=== PATIENT | female | born 1985 | race Caucasian/White ===

== ENCOUNTER 2018-08-18 15:09 | Inpatient (IN) | payer OTHER ==
[2018-08-15 08:59] VITALS: BMI 30.2
[2018-08-18] MEDS ORDERED: Nalbuphine HCL 10 mg/ml Ampule IVP ONE (18:43)
[2018-08-18] MEDS ORDERED: Lactated Ringer's 1,000 ML IV SCH (18:45)
[2018-08-18] MEDS ORDERED: Nalbuphine 20 mg/ml Inj (1 ml) ONE (18:57)
--- NOTE | 2018-08-18 22:29 | OBADHP ---
Datetime: 08/18/2018 22:25 Extremities - PN: Normal Abdomen - PN: Normal Back - PN: Normal Lungs - PN: Normal Heart - PN: Normal Neurologic - PN: Normal General - PN: Normal FHR - Baseline A Provider: 120's Membranes, Provider: Intact Contraction Comments Provider: Q5 Vital Signs Provider: Reviewed NICHD Variability Prov Fetus A: Moderate 6-25bpm NICHD Accel Fetus A IP Provider: 15X15 FHR Category Provider Fetus A: Category I NICHD Decel Fetus A IP Provider: None Dilatation, Provider: 2 Effacement, Provider: 100 Station, Provider: -1 Genitourinary Exam: Normal Datetime: 08/18/2018 15:37 Admit Comment, IP Provider: 32 yo G1 at 38 wks w/ EDC 09/01/2018 by LMP c/o ctxns last night that [place] ve become stronger and regular today, passed mucus plug at 1pm. Pt denies LOF, VB and reports FM. PMH: Crohn's Meds: PNVs All: remicade- anaphylaxis Fam hx: sister- DM PSH: Appendectomy 01/2004 Bowel resection 05/2004 [place] [facility] hx: menarche 13, reg periods Pt denies STDs, abn paps Soc hx: Pt denies tobacco, alcohol, and illicit drug use PE: AFVSS Gen'l: Pt appears slightly uncomfortable in stretcher Heart: RRR Chest: lungs CTA b/l Abd: soft, NT, gravid Ext: no edema, NT VE: 1-/ -1 at 1535 EFM: as above [place]: as above A/P: 32 yo G1 at 38 wks w/ ctxns VE at 6 pm- unchanged Pt received nubaine VE at 10:06 pm 100/-1 Pt admitted in to L_D. GBS negative. FHT reactive. IP Chief Complaint: Uterine contractions EGA AdmitDate IP: 38.0 IP Adm Impression: Term, intrauterine IP Admit Plan: Admit to unit; Initiate labor protocol; Observation/Evaluation Datetime: 08/15/2018 09:56 Pelvic Type - PN: Adequate Breast - PN: Not Done Thyroid - PN: Not Done HEENT - PN: Normal Comments, ACOG Physical Exam: Sterile speculum exam: No fluid, no discharge, no bleeding, no fluid with Valsalva. Pool Provider: Negative DTRs - PN: Not Done
[2018-08-18 23:06] LABS: BASO % 0.4 % (0.0-2.0); EOS # 0.1 K/uL (0.0-0.7); EOS % 0.6 % (0.0-4.0); HEMOGLOBIN 11.6 g/dL (12.0-16.0); LYMPH # 1.9 K/uL (1.0-4.3); LYMPH % 16.1 % (20.0-40.0); MEAN CELL VOLUME 82.8 fl (81.0-99.0); MEAN CORPUSCULAR HEMOGLOBIN 26.6 pg (27.0-31.0); MEAN CORPUSCULAR HGB CONC 32.2 g/dL (33.0-37.0); MEAN PLATELET VOLUME 12.9 fl (7.2-11.7); MONO # 0.8 K/uL (0.0-0.8); NEUT # 8.8 K/uL (1.8-7.0); NEUT % 75.9 % (50.0-75.0); NRBC % 0.1 % (0.0-0.0); RBC 4.35 Mil/uL (3.80-5.20); RED CELL DISTRIBUTION WIDTH 14.9 % (11.5-14.5); WHITE BLOOD COUNT 11.6 K/uL (4.8-10.8)
[2018-08-18] MEDS ORDERED: Promethazine 25 MG in Sodium Chloride 0.9% 50 ML IVPB ONE (23:53)
[2018-08-18] MEDS ORDERED: Nalbuphine HCL 10 mg/ml Ampule IVP PRN (23:53)
[2018-08-19] MEDS: Nalbuphine 20 mg/ml Inj (1 ml) IVP PRN ×2 (00:29→04:34)
[2018-08-19] MEDS ORDERED: Promethazine 25 MG in Sodium Chloride 0.9% 50 ML IVPB ONE (04:18)
[2018-08-19] MEDS: Lactated Ringer's 1,000 ML IV SCH ×4 (04:38→11:15)
--- NOTE | 2018-08-19 07:34 | HP ---
HISTORY OF PRESENT ILLNESS: This is a 32-year-old G1 at 38 weeks with an EDC of 09/01/2018 by LMP, complaining of contractions last night that had become stronger and regular today. The patient reports that she passed her mucus plug at 1 p.m. She denies leaking of fluids, vaginal bleeding, reports positive movement. Of note, the patient received her care with Dr. Dara Knutson. The patient has a history of Crohn's disease, status post bowel resection in 2003, GBS was negative and that was done on 08/06/2018. The patient received her Tdap on 06/19/2018, and she received her flu vaccine on 08/13/2018. PAST MEDICAL HISTORY: Crohn's. MEDICATIONS: vitamins. ALLERGIES: REMICADE CAUSED ANAPHYLAXIS. FAMILY HISTORY: Sister with diabetes. PAST SURGICAL HISTORY: Appendectomy in 01/2004 and bowel resection in 05/2004. [employer] HISTORY: Menarche at 13, regular periods. The patient denies any history of any STDs or any abnormal Pap smears. SOCIAL HISTORY: The patient denies tobacco, alcohol, or illicit drug use. LABS: On 01/22/2018, blood type is 0 negative. No antibodies detected. Hemoglobin electrophoresis is normal pattern. Urine culture with no growth. HIV was nonreactive. Varicella zoster antibody was positive. Rubella antibody was positive. RPR was nonreactive. Hepatitis B surface antigen was nonreactive. On 02/19/2018, her panorama was low risk female fetus. On 02/19/2018, Pap smear was negative. HPV was negative. Gonorrhea and chlamydia were negative. On 03/19/2018, maternal serum AFP was negative. On 06/19/2018, her HIV was nonreactive, and on 06/19/2018, her RPR was nonreactive. One-hour glucose was 103, and on 08/06/2018, her group B Strep was negative. PHYSICAL EXAMINATION: GENERAL: The patient appears uncomfortable, in the stretcher. VITAL SIGNS: Afebrile. Vital signs stable. HEART: Regular rate and rhythm. CHEST AND LUNGS: Clear to auscultation bilaterally. ABDOMEN: Soft, nontender. Gravid. EXTREMITIES: No edema. Nontender. GENITALIA: Vaginal exam at 1535 was 1 to 2 cm, 75% -1 station. External monitoring in the 120s. Moderate variability and positive accelerations. Tocodynamometer was every six minutes at 1800. Exam was unchanged with 1 to 2, 75% minus 1 station. The patient received Nubain 10 mg IV and Nubain at 7 p.m. and at 10:06 p.m. or 2206. Her exam is changed to 2 cm, 100% effaced at -1 station. ASSESSMENT AND PLAN: This is a 32-year-old G1 at 38 weeks with contractions and early labor. The patient was admitted to labor and delivery. GBS is negative. heart tracing reactive. Maame Hutchison MD
[2018-08-19] MEDS ORDERED: Oxytocin 30 UNIT 30 UNITS/500 ML BAG IV ONE ×2 (09:41→17:11)
[2018-08-19] MEDS ORDERED: Fentanyl/Bupivacaine HCl 250 ML EPI ONE (10:00)
[2018-08-19] MEDS ORDERED: OXYTOCIN/0.9 % NS 20 UNIT/1,000 ML BAG IV SCH (14:45)
--- NOTE | 2018-08-19 16:48 | OBPN ---
Datetime: 08/19/2018 16:41 IP Informed Consent Obtain: Vaginal Delivery IP Procedures: Intrauterine Pressure Catheter; Scalp Electrode IP Progress Plan: Continue present management Membranes, Provider: Ruptured Amniotic Fluid Color, Provider: Clear Contraction Comments Provider: q 2-3 mins FHR - Baseline A Provider: 160 IP Progress Note Comment: Patient is comfortable s/p epidural. VE=6/100/0 MPC=083 mod kassie, +accels, no decels TOCO = ctxning q 2-3 mins, Pit @ 18 A/P 1. Patient has protracted labor, IUPC placed. Patient has been 6cm for over 2 hours, will continue to augment with Pitocin above 20mu/min 2. CEFM and TOCO 3. Re-evaluate as needed or in 2 hours. If the patient is an arrest, would advise Vital Signs Provider: Reviewed; Within Normal Limits NICHD Accel Fetus A IP Provider: 15X15 NICHD Variability Prov Fetus A: Moderate 6-25bpm Dilatation, Provider: 6 Effacement, Provider: 100 Station, Provider: 0 Datetime: 08/18/2018 22:25 FHR Category Provider Fetus A: Category I NICHD Decel Fetus A IP Provider: None Datetime: 08/15/2018 09:56 Pool Provider: Negative
--- NOTE | 2018-08-19 18:58 | OBPN ---
Datetime: 08/19/2018 18:30 IP Informed Consent Obtain: Vaginal Delivery IP Procedures: Sterile Vag Exam IP Progress Plan: Continue present management Membranes, Provider: Ruptured Contraction Comments Provider: MVU = 200 FHR - Baseline A Provider: 160 IP Progress Note Comment: Patient comfortable OOD=999 mod kassie, +accels, no decels TOCO = MVU about 200 mu/min VE=7-8/100/0 A/P 1. patient making some cervical change, continue augmentation with Pitocin 2. CEFM and IUPC 3. Re-evaluate as needed Vital Signs Provider: Reviewed; Within Normal Limits NICHD Variability Prov Fetus A: Moderate 6-25bpm Dilatation, Provider: 7-8 Effacement, Provider: 100 Station, Provider: 0 NICHD Decel Fetus A IP Provider: None
[2018-08-19] MEDS: AMPICILLIN IV SCH (20:00)
[2018-08-19] MEDS: SODIUM CHLORIDE 0.9% IV SCH (20:00)
--- NOTE | 2018-08-19 21:24 | OBPN ---
Datetime: 08/19/2018 21:00 IP Informed Consent Obtain: Vaginal Delivery IP Procedures: Sterile Vag Exam IP Progress Plan: Continue present management Contraction Comments Provider: q 2-3 mins FHR - Baseline A Provider: 160 IP Progress Note Comment: Patient feeling pressure, last temp was 99.6. Tmax = 100.6. Ampicillin, Ge ntamicin and tylenol given for suspected chorio PTN=933 mod kassie, +acccels, no decels TOCO = ctxning q 2-3 mins, Pitocin @ 22mu/min VE=9/100/1 A/P 1. Patient progressingly slowly, now 9cm. 2. Patient being treated for suspected chorio. Temperature now 99.6. Patient progressing in labor, cat-1 and cat -2 tracing observed. resuscitative measures improve tracing. Will continue with labor at this time 3. Will advise if worsening maternal/ distress observed 4. CEFM and TOCO Vital Signs Provider: Reviewed; Within Normal Limits NICHD Accel Fetus A IP Provider: 15X15 NICHD Variability Prov Fetus A: Moderate 6-25bpm Dilatation, Provider: 9 Effacement, Provider: 100 Station, Provider: 1
[2018-08-20] MEDS ORDERED: Lidocaine 2% MPF (5 ml) Inj ONE (00:01)
[2018-08-20] MEDS ORDERED: Oxytocin 30 UNIT 30 UNITS/500 ML BAG IV ONE (00:01)
--- NOTE | 2018-08-20 00:29 | OBDS ---
MATERNAL INFORMATION Provider Comments: of live female over intact perineum, followed by shoulders and rest o f infant, OA presentation, mouth and nose suctioned, cord clamped and cut, placed in warmer, c ord blood obtained, placenta delivered spontaneously, fundus firm, [id number] , 2nd degree laceration repaired with 2-0 vicryl rapide LABOR SUMMARY EDC: 09/01/2018 00:00 No. Babies in Womb: 1 MEMBRANES Membranes Rupture Method: Spontaneous Rupture of Membranes: 08/19/2018 11:59 Amniotic Fluid Color: Light Meconium Amniotic Fluid Amount: Small SCORES BABY A Heart Rate 1 min: >100 bpm Resp Effort 1 min: Slow, Irregular Reflex Irritability 1 min: [place] Muscle Tone 1 min: Flaccid Color 1 min: Body [place], Extremities Blue SCORE 1 MIN: 5 IDENTIFICATION/MEDS BABY A ID Band Number: [id number]
[2018-08-20] MEDS ORDERED: Benzocaine/Menthol SPRAY TOP PRN ×2 (00:30→02:31)
[2018-08-20] MEDS ORDERED: Oxycodone/Acetaminophen 5/325 mg Tab PO PRN ×4 (00:30→02:31)
[2018-08-20] MEDS: SODIUM CHLORIDE 0.9% IV SCH (01:30)
[2018-08-20] MEDS: AMPICILLIN IV SCH (01:30)
[2018-08-20] MEDS ORDERED: AMPicillin 2 GM in Sodium Chloride 0.9% 100 ML IVPB SCH (04:00)
[2018-08-20 06:44] LABS: MEAN CELL VOLUME 82.4 fl (81.0-99.0); MEAN CORPUSCULAR HEMOGLOBIN 26.6 pg (27.0-31.0); MEAN CORPUSCULAR HGB CONC 32.3 g/dL (33.0-37.0); RBC 3.38 Mil/uL (3.80-5.20); RED CELL DISTRIBUTION WIDTH 15.1 % (11.5-14.5); WHITE BLOOD COUNT 16.7 K/uL (4.8-10.8)
[2018-08-20] MEDS: AMPicillin 2 GM in Sodium Chloride 0.9% 100 ML IVPB SCH ×3 (08:03→20:35)
[2018-08-20] MEDS: Multivitamin With Minerals Tab PO SCH (08:11)
[2018-08-20] MEDS ORDERED: SODIUM CHLORIDE 0.9% IVPB SCH (09:00)
[2018-08-20] MEDS ORDERED: Multivitamin With Minerals Tab PO SCH (09:00)
[2018-08-20] MEDS ORDERED: GENTAMICIN IVPB SCH (09:00)
[2018-08-20] MEDS ORDERED: AMPicillin 4 GM ONE (16:12)
--- NOTE | 2018-08-21 00:59 | OBPPN ---
Datetime: 08/20/2018 23:00 PP Pain Prov: Within normal limits PP Nausea Prov: Denies PP Flatus Prov: Yes PP BM Prov: Yes PP Breasts Prov: Normal PP Heart Prov: Normal PP Lungs Prov: Normal PP Abdomen/Uterus Prov: Normal PP Lochia Prov: Normal PP Vulva/Perineum Prov: Normal PP CVA Tenderness Prov: Normal PP Extremities Prov: Normal PP Impression Prov: Normal progression PP Plan Prov: Continue present management PP Progress Note Prov: H/H 07/25 Blood type O neg A: S/P day 1 Anemia : asymptomatic PLAN: anticipate discharge PPD2
[2018-08-21] MEDS: AMPicillin 2 GM in Sodium Chloride 0.9% 100 ML IVPB SCH ×2 (02:15→09:58)
[2018-08-21] MEDS: Multivitamin With Minerals Tab PO SCH (10:01)
[2018-08-22 01:24] VITALS: BP 136/83; PULSE 110; RESP 20; TEMP 98.1; O2SAT 98
== END 2018-08-21 15:00 | disposition home or self-care (01) | DRG 806 ==
LOC: H.EROB2 15:09 → MERGE 22:48 → H.L&D 22:48 → H.OB/GYN 08-20 02:15
PROVIDERS: ADMIT Obstetrics & Gynecology; ATTEND Obstetrics & Gynecology
PROC: 4A1H74Z Monitoring of Products of Conception, Cardiac Electrical Activity, Via Natural or Artificial Opening (ICD-10-PCS; 2018-08-18)
PROC: 10E0XZZ Delivery of Products of Conception, External Approach (ICD-10-PCS; principal; 2018-08-19)
PROC: 0KQM0ZZ Repair Perineum Muscle, Open Approach (ICD-10-PCS; 2018-08-19)
DX: O99.62 Diseases of the digestive system complicating childbirth (principal); K50.90 Crohn's disease, unspecified, without complications; O70.1 Second degree perineal laceration during delivery; O77.0 Labor and delivery complicated by meconium in amniotic fluid; Z37.0 Single live birth; Z3A.38 38 weeks gestation of pregnancy